=== PATIENT | female | born 2000 | race African-American/Black ===

== ENCOUNTER 2019-03-06 14:33 | Inpatient (IN) | payer OTHER ==
[~2019-03-06] VITALS: Ht 177.8 cm; Wt 61.3 kg
[2019-03-06 14:58] LABS: HEMOGLOBIN 13.2 g/dl (12.0-15.5); MEAN CORPUSCULAR HEMOGLOBIN 31.4 pg (27.0-33.0); PLATELET COUNT, AUTOMATED 235 10^3/uL (150-450); RED BLOOD COUNT 4.21 10^6/uL (4.00-5.40); WHITE BLOOD COUNT 7.6 10^3/uL (4.0-10.0)
[2019-03-06 15:20] LABS: AMPHETAMINES LEVEL URINE NEGATIVE (NEGATIVE); BARBITURATES URINE NEGATIVE (NEGATIVE); BENZODIAZEPINES URINE NEGATIVE (NEGATIVE); CANNABINOIDS URINE NEGATIVE (NEGATIVE); COCAINE METABOLITE URINE NEGATIVE (NEGATIVE); METHADONE URINE NEGATIVE (NEGATIVE); OPIATES URINE NEGATIVE (NEGATIVE); PHENCYCLIDINE URINE NEGATIVE (NEGATIVE)
[2019-03-06 15:39] LABS: ACETAMINOPHEN LEVEL < 2.0 UG/ML (10.0-30.0); ALT/SGPT 9 U/L (12-78); BILIRUBIN,DIRECT 0.4 MG/DL (0.0-0.2); BLOOD UREA NITROGEN 7 MG/DL (7-18); CALCIUM LEVEL 8.5 MG/DL (8.5-10.1); CARBON DIOXIDE LEVEL 28 MEQ/L (21-32); CHLORIDE LEVEL 107 MEQ/L (98-107); CREATININE FOR GFR 0.74 MG/DL (0.55-1.30); ETHYL ALCOHOL (ETHANOL) < 0.003 % (0.000-0.010); GLOMERULAR FILTRATION RATE > 60.0 (>60); GLUCOSE, FASTING 82 MG/DL (70-100); POTASSIUM SERUM 3.7 MEQ/L (3.5-5.1); SALICYLATE LEVEL < 1.7 MG/DL (5.0-30.0); SODIUM LEVEL 141 MEQ/L (136-145); TOTAL PROTEIN 7.6 GM/DL (6.4-8.2)
[2019-03-06 15:48] LABS: HCG, SERUM QUALITATIVE NEGATIVE (NEGATIVE)
[2019-03-06] MEDS ORDERED: SLEEPING MED (18:29)
[2019-03-06] MEDS ORDERED: ANTIDEPRESSANT MED (18:29)
[2019-03-06] MEDS ORDERED: ACETAMINOPHEN TAB 650MG DOSE (2X325MG) PO PRN (19:45)
[2019-03-06] MEDS ORDERED: traZODone 50 MG TAB PO PRN (19:45)
[2019-03-06] MEDS ORDERED: MOM 30ML SUSPENSION UDC PO PRN (19:45)
[2019-03-06 23:15] VITALS: BP 128/79
[2019-03-07] MEDS ORDERED: LORazepam 1 MG TAB PO PRN
[2019-03-07 06:52] VITALS: BP 109/63
[2019-03-07] MEDS ORDERED: LEXA1TAB PO (08:28)
[2019-03-07] MEDS ORDERED: TRAZ-186 PO (08:28)
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
[2019-03-07] MEDS ORDERED: VENLAFAXINE **XR** 37.5 MG CAPSULE PO ONE (13:00)
--- NOTE | 2019-03-07 14:20 | HPEPDOC ---
General Date of Admission March 06, 2019 at 19:39 Chief Complaint The patient is a 19-year-old female admitted with a reason for visit of Unspecif ed Depressive D/O. History of Present Illness Patient is a 19-year-old female, past medical history significant for depression, prior suicide attempt at age 14, admitted on account of suicidal ideation for 2 months. Patient states she went to the behavioral health unit and was referred to the emergency room. She reports usually thinking of killing herself at night for the past 2 months. There is documentation of patient making statements to the effect that she "wouldn't mind being hit by a car while walking across the road. " Initially was placed on antidepressant and sleeping medications which were not effective. At time of evaluation, reports feeling empty inside and being unable to sleep. On assessment, patient also reports yellow vaginal discharge, with odor. . Home Medications Scheduled Escitalopram Oxalate (Lexapro) 10 Mg Tablet, 10 MG PO DAILY for . , (Reported) Trazodone HCl (Trazodone HCl) 50 Mg Tablet, 50 MG PO QHS for SLEEP, (Reported) Allergies Coded Allergies: No Known Allergies (Unverified , 03/06/19) Past Medical History Medical History Depression Insomnia Surgical History Denies A-FIB/CHADSVASC A-FIB History Current/History of A-Fib/PAF?: No Current Oral Anticoagulant The: No Review of Systems Other systems The pertinent 10 point review of systems was completed, negative except as stated in the history of presenting illness Physical Examination Other physical findings GENERAL: NAD SKIN : Warm, dry intact HEENT: Atraumatic, normocephalic, PERRL, moist mucous membrane CV: Regular rate and rhythm, S1S2, no JVD, no edema, distal pulses + and palpabl e RESP: CTAB, no accessory muscle use noted ABDOMEN: BS+, non distended non tender MS: no joint deformities NEURO: Alert and oriented x 3, CN2-12 grossly intact PSYCH: no anxiety or agitation, appropriate mood and affect. Vital Signs Vital Signs Date Time Temp Pulse Resp B/P (MAP) Pulse Ox O2 Delivery O2 Flow Rate FiO2 03/07/19 06:52 98.0 84 12 109/63 (78) 03/06/19 23:15 99 03/06/19 22:00 Room Air Laboratory Data Labs 24H Laboratory Tests 2 5/6/19 14:48: Nucleated Red Blood Cells % (auto) 0.0, Anion Gap 6L, Glomerular Filtration Rate > 60.0, Calcium Level 8.5, Aspartate Amino Transf (AST/SGOT) 16, Alanine Aminotransferase (ALT/SGPT) 9L, Alkaline Phosphatase 55, Total Bilirubin 2.0H, Direct Bilirubin 0.4H, Total Protein 7.6, Albumin 4.0, Albumin/Globulin Ratio 1. 11, Thyroid Stimulating Hormone (TSH) 1.020, Human Chorionic Gonadotropin, Qual NEGATIVE, Salicylates Level < 1.7L, Urine Amphetamines Screen NEGATIVE, Urine Benzodiazepines Screen NEGATIVE, Urine Opiates Screen NEGATIVE, Urine Methadone Screen NEGATIVE, Acetaminophen Level < 2.0L, Urine Barbiturates Screen NEGATIVE, Urine Phencyclidine Screen NEGATIVE, Urine Cocaine Metabolite Screen NEGATIVE, Urine Cannabinoids Screen NEGATIVE, Ethyl Alcohol Level < 0.003 CBC/BMP Laboratory Tests 03/06/19 14:48 Red Blood Count 4.21, Mean Corpuscular Volume 95.0, Mean Corpuscular Hemoglobin 31.4, Mean Corpuscular Hemoglobin Concent 33.0, Red Cell Distribution Width 11.7 Assessment/Plan Bacterial Vaginosis -Start on metronidazole -Monitor patients response to therapy Depression -management by primary team Suicide Ideation -management by primary team Plan / VTE VTE Prophylaxis Ordered?: No VTE Exclusion Mechanical Proph: Low Risk for VTE ROSE ANTONIO March 07, 2019 14:20
[2019-03-07] MEDS: metroNIDAZOLE (FLAGYL) 500 MG TAB PO SCH ×2 (14:47→21:13)
[2019-03-07] MEDS: MAALOX 30 ML SUSP *UDC PO PRN (17:44)
[2019-03-07 18:00] VITALS: BP 116/64
[2019-03-07] MEDS: QUEtiapine FUMARATE 50 MG TAB PO SCH (21:13)
[2019-03-08] MEDS: metroNIDAZOLE (FLAGYL) 500 MG TAB PO SCH ×3 (06:09→21:24)
[2019-03-08 06:58] VITALS: BP 134/61
[2019-03-08] MEDS: VENLAFAXINE **XR** 37.5 MG CAPSULE PO SCH (09:45)
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
[2019-03-08 18:36] VITALS: BP 119/76
[2019-03-08] MEDS: MAALOX 30 ML SUSP *UDC PO PRN (19:59)
[2019-03-08] MEDS: QUEtiapine FUMARATE 50 MG TAB PO SCH (21:24)
[2019-03-09] MEDS: metroNIDAZOLE (FLAGYL) 500 MG TAB PO SCH ×3 (06:13→21:08)
[2019-03-09 06:35] VITALS: BP 98/51
[2019-03-09] MEDS: VENLAFAXINE **XR** 37.5 MG CAPSULE PO SCH (08:32)
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
[2019-03-09] MEDS: MAALOX 30 ML SUSP *UDC PO PRN (12:36)
[2019-03-09] MEDS ORDERED: FLUCONAZOLE 50MG TABLET PO ONE (16:00)
[2019-03-09 18:00] VITALS: BP 120/84
[2019-03-09] MEDS: QUEtiapine FUMARATE 50 MG TAB PO SCH (21:08)
[2019-03-09] MEDS: traZODone 100 MG TAB PO PRN (21:09)
[2019-03-10] MEDS: metroNIDAZOLE (FLAGYL) 500 MG TAB PO SCH ×3 (05:44→21:23)
[2019-03-10 06:44] VITALS: BP 90/50
[2019-03-10] MEDS: VENLAFAXINE **XR** 37.5 MG CAPSULE PO SCH (08:48)
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
[2019-03-10 18:00] VITALS: BP 112/60
[2019-03-10] MEDS: FAMOTIDINE 20 MG TAB PO SCH (21:23)
[2019-03-10] MEDS: traZODone 100 MG TAB PO PRN (21:23)
[2019-03-10] MEDS: QUEtiapine FUMARATE 50 MG TAB PO SCH (21:23)
[2019-03-11] MEDS: metroNIDAZOLE (FLAGYL) 500 MG TAB PO SCH ×3 (06:12→21:53)
[2019-03-11 06:33] VITALS: BP 95/52
[2019-03-11] MEDS: VENLAFAXINE **XR** 37.5 MG CAPSULE PO SCH (08:47)
[2019-03-11 18:05] VITALS: BP 113/60
[2019-03-11] MEDS: MAALOX 30 ML SUSP *UDC PO PRN (18:11)
[2019-03-11] MEDS: traZODone 100 MG TAB PO PRN (21:53)
[2019-03-11] MEDS: QUEtiapine FUMARATE 50 MG TAB PO SCH (21:53)
[2019-03-11] MEDS: FAMOTIDINE 20 MG TAB PO SCH (21:53)
[2019-03-12] MEDS: metroNIDAZOLE (FLAGYL) 500 MG TAB PO SCH ×3 (06:26→20:30)
[2019-03-12 06:47] VITALS: BP 95/55
[2019-03-12] MEDS: VENLAFAXINE **XR** 37.5 MG CAPSULE PO SCH (10:04)
[2019-03-12 17:22] VITALS: BP 99/57
[2019-03-12] MEDS: MAALOX 30 ML SUSP *UDC PO PRN (18:11)
[2019-03-12] MEDS: FAMOTIDINE 20 MG TAB PO SCH (20:30)
[2019-03-12] MEDS: QUEtiapine FUMARATE 50 MG TAB PO SCH (20:30)
[2019-03-12] MEDS: traZODone 100 MG TAB PO PRN (20:31)
[2019-03-13] MEDS: metroNIDAZOLE (FLAGYL) 500 MG TAB PO SCH (06:42)
[2019-03-13 06:45] VITALS: BP 90/53
[2019-03-13] MEDS ORDERED: VENL37.598 PO (08:41)
[2019-03-13] MEDS ORDERED: QUET5TAB PO (08:41)
[2019-03-13] MEDS ORDERED: TRAZ10TA PO (08:41)
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
[2019-03-13] MEDS: VENLAFAXINE **XR** 37.5 MG CAPSULE PO SCH (09:04)
[2019-03-13] MEDS ORDERED: SERO1TAB PO ×2 (10:13→10:15)
[2019-03-13] MEDS ORDERED: EFFE75CA2 PO (10:14)
[2019-03-13] MEDS: MAALOX 30 ML SUSP *UDC PO PRN (10:19)
== END 2019-03-13 12:00 | disposition home or self-care (01) | DRG 881 ==
LOC: M ED 14:33 → M ED INP 19:39 → M PSY 22:20
PROVIDERS: ADMIT Psychiatry & Neurology Psychiatry; ATTEND Psychiatry & Neurology Psychiatry
DX: F32.9 Major depressive disorder, single episode, unspecified (principal); F31.9 Bipolar disorder, unspecified; Z79.899 Other long term (current) drug therapy

== ENCOUNTER 2019-04-12 14:48 | Inpatient (IN) | payer OTHER ==
[~2019-04-12] VITALS: Ht 177.8 cm; Wt 61.1 kg
[~2019-04-12 14:48] MED LIST: ANTIDEPRESSANT MED; EFFE75CA2 PO; LEXA1TAB PO; QUET5TAB PO; SERO1TAB PO; SLEEPING MED; TRAZ-186 PO; TRAZ10TA PO; VENL37.598 PO
[2019-04-12 15:34] LABS: HEMATOCRIT 38.7 % (36.0-47.0); HEMOGLOBIN 12.9 g/dl (12.0-15.5); MEAN CORPUSCULAR HEMOGLOBIN 32.3 pg (27.0-33.0); MEAN CORPUSCULAR HGB CONC 33.3 g/dl (32.0-36.5); MEAN CORPUSCULAR VOLUME 96.8 fl (80.0-96.0); PLATELET COUNT, AUTOMATED 230 10^3/uL (150-450); WHITE BLOOD COUNT 7.8 10^3/uL (4.0-10.0)
[2019-04-12 15:51] LABS: AMPHETAMINES LEVEL URINE NEGATIVE (NEGATIVE); BARBITURATES URINE NEGATIVE (NEGATIVE); BENZODIAZEPINES URINE NEGATIVE (NEGATIVE); CANNABINOIDS URINE NEGATIVE (NEGATIVE); COCAINE METABOLITE URINE NEGATIVE (NEGATIVE); HCG, SERUM QUALITATIVE NEGATIVE (NEGATIVE); METHADONE URINE NEGATIVE (NEGATIVE); OPIATES URINE NEGATIVE (NEGATIVE); PHENCYCLIDINE URINE NEGATIVE (NEGATIVE)
[2019-04-12 16:04] LABS: ACETAMINOPHEN LEVEL < 2.0 UG/ML (10.0-30.0); ALBUMIN 3.7 GM/DL (3.2-5.2); ALT/SGPT 23 U/L (12-78); BILIRUBIN,DIRECT 0.2 MG/DL (0.0-0.2); BLOOD UREA NITROGEN 9 MG/DL (7-18); CALCIUM LEVEL 8.5 MG/DL (8.5-10.1); CARBON DIOXIDE LEVEL 28 MEQ/L (21-32); CHLORIDE LEVEL 107 MEQ/L (98-107); CREATININE FOR GFR 0.85 MG/DL (0.55-1.30); GLOMERULAR FILTRATION RATE > 60.0 (>60); GLUCOSE, FASTING 88 MG/DL (70-100); POTASSIUM SERUM 4.2 MEQ/L (3.5-5.1); SALICYLATE LEVEL < 1.7 MG/DL (5.0-30.0); SODIUM LEVEL 140 MEQ/L (136-145); TOTAL PROTEIN 7.1 GM/DL (6.4-8.2)
[2019-04-12 16:05] LABS: ETHYL ALCOHOL (ETHANOL) < 0.003 % (0.000-0.010)
[2019-04-12] MEDS ORDERED: TRAZ-189 PO (16:47)
[2019-04-12] MEDS ORDERED: IBUP-1092 PO (16:47)
[2019-04-12] MEDS ORDERED: SERO1TAB PO (16:47)
[2019-04-12] MEDS ORDERED: VENL75CA2 PO (16:47)
[2019-04-12] MEDS ORDERED: MOM 30ML SUSPENSION UDC PO PRN (17:00)
[2019-04-12 17:39] VITALS: BP 136/92
[2019-04-12] MEDS: ACETAMINOPHEN TAB 650MG DOSE (2X325MG) PO PRN (17:57)
[2019-04-12] MEDS: MAALOX 30 ML SUSP *UDC PO PRN (18:38)
[2019-04-12] MEDS: QUEtiapine FUMARATE 100 MG TAB PO SCH (20:21)
[2019-04-12] MEDS: traZODone 100 MG TAB PO PRN (20:21)
[2019-04-13 07:02] VITALS: BP 124/68
[2019-04-13] MEDS ORDERED: VENLAFAXINE **XR** 75MG CAPSULE PO SCH (09:00)
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
[2019-04-13] MEDS ORDERED: VENLAFAXINE 37.5 MG TAB PO ONE (11:30)
[2019-04-13 12:30] VITALS: BP 113/70
[2019-04-13] MEDS: MAALOX 30 ML SUSP *UDC PO PRN (13:00)
--- NOTE | 2019-04-13 13:59 | HPEPDOC ---
General Date of Admission Apr 12, 2019 at 16:56 Date of Service: Apr 13, 2019 Attending Physician: FANI DELCID MD Chief Complaint The patient is a 19-year-old female admitted with a reason for visit of Unspecified Depressive Disorder. 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 Patient also verbalized homicidal ideation. Trigger for current presentation been work related stress. Patient has a past medical history significant for prior suicide attempt at age 14. On assessment, she denies any chest pain, shortness of breath, weakness, headache, abdominal pain, chills, nausea, diarrhea or constipation. Home Medications Scheduled Quetiapine Fumarate (Seroquel) 100 Mg Tablet, 100 MG PO QHS, (Reported) Trazodone HCl (Trazodone HCl) 100 Mg Tablet, 100 MG PO QHS, (Reported) Venlafaxine HCl (Venlafaxine HCl ER) 75 Mg Cap.er.24h, 75 MG PO DAILY, (Reported) Scheduled PRN Ibuprofen (Ibuprofen) 200 Mg Tablet, 400 MG PO QID PRN for PAIN, (Reported) Allergies Coded Allergies: No Known Allergies (Unverified , 04/12/19) Past Medical History Medical History Depression Insomnia Surgical History Denies Social History * Smoker: Denies Alcohol: Denies Drugs: denies A-FIB/CHADSVASC A-FIB History Current/History of A-Fib/PAF?: No Current PO Anticoag Therapy: No Review of Systems Other systems A pertinent 10 point review of systems was completed, negative except as stated in the history of presenting illness Physical Examination Other physical findings GENERAL: NAD SKIN : Warm, dry intact HEENT: Atraumatic, normocephalic, PERRL, moist mucous membrane CV: Regular rate and rhythm, S1S2, no JVD, no edema, distal pulses + and palpable RESP: CTAB, no accessory muscle use noted ABDOMEN: BS+, non distended non tender MS: no joint deformities NEURO: Alert and oriented x 3, CN2-12 grossly intact PSYCH: no anxiety or agitation, flat affect Vital Signs Vital Signs Date Time Temp Pulse Resp B/P (MAP) Pulse Ox O2 Delivery O2 Flow Rate FiO2 04/13/19 12:30 98.6 98 16 113/70 (84) 04/12/19 17:39 100 04/12/19 15:34 Room Air Laboratory Data Labs 24H Laboratory Tests 2 04/12/19 15:24: Nucleated Red Blood Cells % (auto) 0.0, Anion Gap 5L, Glomerular Filtration Rate > 60.0, Calcium Level 8.5, Aspartate Amino Transf (AST/SGOT) 35, Alanine Aminotransferase (ALT/SGPT) 23, Alkaline Phosphatase 49, Total Bilirubin 1.0, Direct Bilirubin 0.2, Total Protein 7.1, Albumin 3.7, Albumin/Globulin Ratio 1.09, Thyroid Stimulating Hormone (TSH) 2.300, Human Chorionic Gonadotropin, Qual NEGATIVE, Salicylates Level < 1.7L, Urine Amphetamines Screen NEGATIVE, Urine Benzodiazepines Screen NEGATIVE, Urine Opiates Screen NEGATIVE, Urine Methadone Screen NEGATIVE, Acetaminophen Level < 2.0L, Urine Barbiturates Screen NEGATIVE, Urine Phencyclidine Screen NEGATIVE, Urine Cocaine Metabolite Screen NEGATIVE, Urine Cannabinoids Screen NEGATIVE, Ethyl Alcohol Level < 0.003 CBC/BMP Laboratory Tests 04/12/19 15:24 Red Blood Count 4.00, Mean Corpuscular Volume 96.8 H, Mean Corpuscular Hemoglobin 32.3, Mean Corpuscular Hemoglobin Concent 33.3, Red Cell Distribution Width 11.4 L Assessment/Plan Suicide Ideation/homicidal ideation -management by primary team Depression -management by primary team At this time patient has no medical comorbidities requiring active follow-up. Reconsult medical team as needed Plan / VTE VTE Prophylaxis Ordered?: No VTE Exclusion Mechanical Proph: Low Risk for VTE ROSE ANTONIO Apr 13, 2019 13:59
[2019-04-13 18:00] VITALS: BP 109/64
[2019-04-13] MEDS: QUEtiapine FUMARATE 100 MG TAB PO SCH (20:48)
[2019-04-13] MEDS: traZODone 100 MG TAB PO PRN (20:48)
[2019-04-14 07:00] VITALS: BP 115/59
[2019-04-14] MEDS: VENLAFAXINE 37.5 MG TAB PO SCH (08:37)
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
[2019-04-14] MEDS ORDERED: PILL CUTTER 1 EACH XX PRN (10:00)
[2019-04-14 18:42] VITALS: BP 105/64
[2019-04-14] MEDS: traZODone 100 MG TAB PO PRN (21:33)
[2019-04-14] MEDS: QUEtiapine FUMARATE 25 MG TAB PO SCH (21:33)
[2019-04-14] MEDS: QUEtiapine FUMARATE 100 MG TAB PO SCH (21:33)
[2019-04-15 06:55] VITALS: BP 107/63
[2019-04-15] MEDS: VENLAFAXINE 37.5 MG TAB PO SCH (08:33)
--- NOTE | 2019-04-15 15:02 | MHIPNPDOC ---
[facility] Progress Note Progress Note DATE OF SERVICE: 04/15/19 HISTORY: 19-year-old with severe depression and possible history of bipolar disorder VITAL SIGNS: See below. NEW TEST RESULTS: . CURRENT MEDICATIONS: See below. MENTAL STATUS EXAMINATION: Patient is a 19-year old female, who is, complaining of severe depression, but describes history of highs and lows with a family history of mother and sibling having bipolar disorder. Speech: Is. No gross abnormality. Language skills are intact. Thought processes including: Presently denying any gross abnormalities including hallucinations, delusions, obsessions, compulsions or phobias. Thought content:. As above. Abstract reasoning, and computation:, Able to abstract. Description of associations:. No loose associations. Description of abnormal or psychotic thoughts: Continues to be severely depressed. Judgment:. Fair. Insight:, Fair. Orientation: Intact 3. Recent and remote memory:. Intact. Attention span and concentration: Intact but patient states she was treated for ADD as child. Language: Intact. Fund of knowledge:. Full. Mood: Sad. Affect:, Congruent. DIAGNOSES: 1.. Bipolar, depressed. ASSESSMENT: Further evaluation and needed to determine if patient is bipolar and if so medication changes being to be made or added MANAGEMENT PLAN: As above. TIME SPENT:, 35 minutes. Vital Signs Vital Signs Date Time Temp Pulse Resp B/P (MAP) Pulse Ox O2 Delivery O2 Flow Rate FiO2 04/15/19 06:55 97.6 100 14 107/63 (78) 04/12/19 17:39 100 04/12/19 15:34 Room Air Current Medications Current Medications Acetaminophen (Tylenol Tab) 650 mg Q6HP PRN PO HEADACHE or DISCOMFORT Last administered on 04/12/19at 17:57; Start 04/12/19 at 17:00 Al Hydrox/Mg Hydrox/Simethicone (Mylanta) 30 ml Q4HP PRN PO HEARTBUR N/INDIGESTION Last administered on 04/13/19at 13:00; Start 04/12/19 at 17:00 Aripiprazole (AbiLIFY) 2.5 mg DAILY PO Last administered on 04/15/19at 08:33; Start 04/15/19 at 09:00 Home Med (Med Rec Complete!) ASDIRECTED XX ; Start 04/12/19 at 17:00; Stop at 17:00; Status DC Magnesium Hydroxide (Milk Of Magnesia) 30 ml DAILYPRN PRN PO CONSTIPATION; Start 04/12/19 at 17:00 Quetiapine Fumarate (SEROquel) 25 mg QHS PO Last administered on 04/14/19at 21:33; Start 04/14/19 at 21:00 Quetiapine Fumarate (SEROquel) 100 mg QHS PO Last administered on 04/14/19at 21:33; Start 04/12/19 at 21:00 Trazodone HCl (Desyrel) 100 mg QHSP PRN PO INSOMNIA Last administered on 04/14/19at 21:33; Start 04/12/19 at 17:00 Venlafaxine HCl (Effexor Xr) 75 mg DAILY PO Last administered on 04/13/19at 09:13; Start 04/13/19 at 09:00; Stop 04/13/19 at 12:08; Status DC Venlafaxine HCl (Effexor) 150 mg DAILY PO Last administered on 04/15/19at 08:33; Start 04/14/19 at 09:00 Allergies Coded Allergies: No Known Allergies (Unverified , 04/12/19) FANTA SAAVEDRA MD Apr 15, 2019 15:02
[2019-04-15] MEDS: MAALOX 30 ML SUSP *UDC PO PRN (17:50)
[2019-04-15 18:00] VITALS: BP 131/80
[2019-04-15] MEDS: QUEtiapine FUMARATE 100 MG TAB PO SCH (21:10)
[2019-04-15] MEDS: QUEtiapine FUMARATE 25 MG TAB PO SCH (21:10)
[2019-04-15] MEDS: traZODone 100 MG TAB PO PRN (21:51)
[2019-04-16 06:38] VITALS: BP 90/58
[2019-04-16] MEDS: VENLAFAXINE 37.5 MG TAB PO SCH (08:59)
--- NOTE | 2019-04-16 10:57 | MHIPNPDOC ---
[facility] Progress Note Progress Note DATE OF SERVICE: 04/16/19 HISTORY: 19-year-old female continues to be depressed and sleeping poorly. VITAL SIGNS: See below. NEW TEST RESULTS: None. CURRENT MEDICATIONS: See below. MENTAL STATUS EXAMINATION: Patient is a 19-year old female, who is, who is admitted for severe depression and sleep difficulties. Speech: Is. Normal. Language skills are. No gross disturbances. Thought processes including:. Denies hallucinations, delusions, obsessions, compulsions, phobias. Thought content:. No gross disturbances. Abstract reasoning, and computation: Able to abstract. Description of associations:. No loose associations. Description of abnormal or psychotic thoughts:. No psychotic thought noted. Judgment: Fair. Insight:, Limited. Orientation: Intact 3. Recent and remote memory:. Essentially intact. Attention span and concentration:. No disturbance. Language:. No gross disturbance. Fund of knowledge:. Full. Mood: Sad Affect:, Congruent. DIAGNOSES: 1., Major depressive illness. ASSESSMENT:. Continue treated for depression with increased doses of venlafaxine and addition of's increased dose of Seroquel due to sleep difficulties MANAGEMENT PLAN: As above. TIME SPENT:, 35 minutes. Vital Signs Vital Signs Date Time Temp Pulse Resp B/P (MAP) Pulse Ox O2 Delivery O2 Flow Rate FiO2 04/16/19 06:38 99.2 72 16 90/58 (69) 04/12/19 17:39 100 04/12/19 15:34 Room Air Current Medications Current Medications Acetaminophen (Tylenol Tab) 650 mg Q6HP PRN PO HEADACHE or DISCOMFORT Last administered on 04/12/19at 17:57; Start 04/12/19 at 17:00 Al Hydrox/Mg Hydrox/Simethicone (Mylanta) 30 ml Q4HP PRN PO H EARTBURN/INDIGESTION Last administered on 04/15/19at 17:50; Start 04/12/19 at 17:00 Aripiprazole (AbiLIFY) 2.5 mg DAILY PO Last administered on 04/16/19at 08:59; Start 04/15/19 at 09:00 Home Med (Med Rec Complete!) ASDIRECTED XX ; Start 04/12/19 at 17:00; Stop 04/12/19 at 17:00; Status DC Magnesium Hydroxide (Milk Of Magnesia) 30 ml DAILYPRN PRN PO CONSTIPATION; Start 04/12/19 at 17:00 Quetiapine Fumarate (SEROquel) 25 mg QHS PO Last administered on 04/15/19at 21:10; Start 04/14/19 at 21:00 Quetiapine Fumarate (SEROquel) 100 mg QHS PO Last administered on 04/15/19at 21:10; Start 04/12/19 at 21:00 Trazodone HCl (Desyrel) 100 mg QHSP PRN PO INSOMNIA Last administered on 04/15/19at 21:51; Start 04/12/19 at 17:00 Venlafaxine HCl (Effexor Xr) 75 mg DAILY PO Last administered on 04/13/19at 09:13; Start 04/13/19 at 09:00; Stop 04/13/19 at 12:08; Status DC Venlafaxine HCl (Effexor) 150 mg DAILY PO Last administered on 04/16/19at 08:59; Start 04/14/19 at 09:00 Allergies Coded Allergies: No Known Allergies (Unverified , 04/12/19) FANTA SAAVEDRA MD Apr 16, 2019 10:56
[2019-04-16] MEDS: ACETAMINOPHEN TAB 650MG DOSE (2X325MG) PO PRN (11:55)
[2019-04-16 18:00] VITALS: BP 102/61
[2019-04-16] MEDS: MAALOX 30 ML SUSP *UDC PO PRN (20:44)
[2019-04-16] MEDS ORDERED: QUEtiapine FUMARATE 50 MG TAB PO SCH (21:00)
[2019-04-16] MEDS: QUEtiapine FUMARATE 100 MG TAB PO SCH (22:03)
[2019-04-16] MEDS: traZODone 100 MG TAB PO PRN (22:03)
[2019-04-17 06:15] VITALS: BP 137/73
[2019-04-17] MEDS: VENLAFAXINE 37.5 MG TAB PO SCH (08:47)
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
[2019-04-17] MEDS: hydrOXYzine 50 MG TAB PO PRN (13:04)
[2019-04-17 18:11] VITALS: BP 121/92
[2019-04-17] MEDS: ACETAMINOPHEN TAB 650MG DOSE (2X325MG) PO PRN (20:32)
[2019-04-17] MEDS ORDERED: QUEtiapine FUMARATE 50 MG TAB PO SCH (21:00)
[2019-04-17] MEDS ORDERED: QUEtiapine FUMARATE 25 MG TAB PO SCH (21:00)
[2019-04-17] MEDS: traZODone 100 MG TAB PO PRN (21:10)
[2019-04-18 06:40] VITALS: BP 122/72
[2019-04-18] MEDS: hydrOXYzine 50 MG TAB PO PRN ×2 (06:40→12:51)
[2019-04-18] MEDS: VENLAFAXINE 37.5 MG TAB PO SCH (08:43)
[2019-04-18] MEDS ORDERED: TRAZ10TA PO (08:49)
[2019-04-18] MEDS ORDERED: QUET1TAB7 PO (08:49)
[2019-04-18] MEDS ORDERED: QUET5TAB PO (08:49)
[2019-04-18] MEDS ORDERED: ABIL1TAB11 PO (08:49)
[2019-04-18] MEDS ORDERED: EFFE150C2 PO (08:49)
[2019-04-18] MEDS ORDERED: HYDRO50TAB PO (08:49)
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
== END 2019-04-18 14:04 | disposition home or self-care (01) | DRG 885 ==
LOC: M ED 14:48 → M ED INP 16:56 → M PSY 17:31
PROVIDERS: ADMIT Psychiatry & Neurology Psychiatry; ATTEND Psychiatry & Neurology Psychiatry
DX: F39 Unspecified mood [affective] disorder (principal); R45.851 Suicidal ideations; F32.9 Major depressive disorder, single episode, unspecified; G47.00 Insomnia, unspecified; R45.850 Homicidal ideations; Z79.899 Other long term (current) drug therapy

== ENCOUNTER 2019-05-23 17:24 | Inpatient (IN) | payer OTHER ==
[~2019-05-23] VITALS: Ht 177.8 cm; Wt 54.5 kg
[~2019-05-23 17:24] MED LIST changes: +ABIL1TAB11 PO; +EFFE150C2 PO; +HYDRO50TAB PO; +IBUP-1092 PO; +QUET1TAB7 PO; +TRAZ-189 PO; +VENL75CA2 PO
[2019-05-23 18:13] LABS: HEMATOCRIT 39.2 % (36.0-47.0); HEMOGLOBIN 12.9 g/dl (12.0-15.5); MEAN CORPUSCULAR HEMOGLOBIN 31.6 pg (27.0-33.0); MEAN CORPUSCULAR HGB CONC 32.9 g/dl (32.0-36.5); MEAN CORPUSCULAR VOLUME 96.1 fl (80.0-96.0); PLATELET COUNT, AUTOMATED 264 10^3/uL (150-450); RED BLOOD COUNT 4.08 10^6/uL (4.00-5.40); WHITE BLOOD COUNT 5.7 10^3/uL (4.0-10.0)
[2019-05-23 18:50] LABS: AMPHETAMINES LEVEL URINE NEGATIVE (NEGATIVE); BARBITURATES URINE NEGATIVE (NEGATIVE); BENZODIAZEPINES URINE NEGATIVE (NEGATIVE); CANNABINOIDS URINE NEGATIVE (NEGATIVE); COCAINE METABOLITE URINE NEGATIVE (NEGATIVE); METHADONE URINE NEGATIVE (NEGATIVE); OPIATES URINE NEGATIVE (NEGATIVE); PHENCYCLIDINE URINE NEGATIVE (NEGATIVE)
[2019-05-23 18:53] LABS: HCG, SERUM QUALITATIVE NEGATIVE (NEGATIVE)
[2019-05-23 18:57] LABS: ACETAMINOPHEN LEVEL < 2.0 UG/ML (10.0-30.0); ALBUMIN 3.9 GM/DL (3.2-5.2); ALT/SGPT 17 U/L (12-78); BILIRUBIN,DIRECT 0.2 MG/DL (0.0-0.2); BILIRUBIN,TOTAL 0.7 MG/DL (0.2-1.0); BLOOD UREA NITROGEN 13 MG/DL (7-18); CALCIUM LEVEL 8.8 MG/DL (8.5-10.1); CARBON DIOXIDE LEVEL 31 MEQ/L (21-32); CHLORIDE LEVEL 105 MEQ/L (98-107); CREATININE FOR GFR 0.81 MG/DL (0.55-1.30); ETHYL ALCOHOL (ETHANOL) 0.005 % (0.000-0.010); GLOMERULAR FILTRATION RATE > 60.0 (>60); GLUCOSE, FASTING 94 MG/DL (70-100); POTASSIUM SERUM 4.3 MEQ/L (3.5-5.1); SALICYLATE LEVEL < 1.7 MG/DL (5.0-30.0); SODIUM LEVEL 139 MEQ/L (136-145); TOTAL PROTEIN 7.3 GM/DL (6.4-8.2)
[2019-05-23] MEDS ORDERED: ACETAMINOPHEN TAB 650MG DOSE (2X325MG) PO PRN (20:45)
[2019-05-23] MEDS ORDERED: traZODone 50 MG TAB PO PRN (20:45)
[2019-05-23] MEDS ORDERED: MOM 30ML SUSPENSION UDC PO PRN (20:45)
[2019-05-23] MEDS ORDERED: MAALOX 30 ML SUSP *UDC PO PRN (20:45)
[2019-05-23] MEDS ORDERED: NICOTINE 21MG/24HR 1 EA TRANSDERMAL TD PRN (21:00)
[2019-05-23] MEDS ORDERED: QUEtiapine FUMARATE 200 MG TAB PO SCH (21:00)
[2019-05-23] MEDS ORDERED: TRAZ150T90 PO (21:18)
[2019-05-23] MEDS ORDERED: SERO400T PO (21:18)
[2019-05-23] MEDS ORDERED: SERO50TA4 PO (21:18)
[2019-05-23] MEDS ORDERED: HYDR50TA70 PO (21:18)
[2019-05-23] MEDS ORDERED: ABIL1TAB11 PO (21:18)
[2019-05-23] MEDS ORDERED: IBUP1TAB7 PO (21:18)
[2019-05-23] MEDS ORDERED: TIZA4TAB4 PO (21:22)
[2019-05-23] MEDS ORDERED: ARTI99.0 OU (21:22)
[2019-05-23] MEDS ORDERED: PRED1SUS2 OU (21:22)
[2019-05-23] MEDS ORDERED: VENL150C43 PO (21:22)
[2019-05-23] MEDS ORDERED: SODI3.5O3 OU (21:22)
[2019-05-23] MEDS ORDERED: OMEP20CA4 PO (21:22)
[2019-05-23] MEDS ORDERED: OLOP0.1D OU (21:22)
[2019-05-23] MEDS ORDERED: traZODone 100 MG TAB PO PRN (22:30)
[2019-05-23] MEDS ORDERED: IBUPROFEN 800 MG TAB PO PRN (22:30)
[2019-05-24 00:14] VITALS: BP 120/76
[2019-05-24] MEDS: QUEtiapine FUMARATE 200 MG TAB PO SCH ×2 (00:19→20:54)
[2019-05-24] MEDS: LORazepam 1 MG TAB PO PRN ×2 (00:19→08:59)
[2019-05-24 06:38] VITALS: BP 99/58
--- NOTE | 2019-05-24 08:03 | HPEPDOC ---
[facility] Medical History & Physical Date of Admission May 24, 2019 Date of Service: May 24, 2019 History and Physical CHIEF COMPLAINT: tereso HISTORY OF PRESENT ILLNESS: Patient is a 19-year-old female with history of bipolar disorder who was sent in from psychiatrist office due to concern for tereso. Patient was in her usual state of health until day prior to admission. Patient states will driving to her psychiatrist appointment she "drove a little fast" going [address] While meeting with her psychiatrist patient told her psychiatrist that she was driving fast and a discussion ensued which led to a disagreement and patient being sent by psychiatrist to the hospital due to concern for tereso. Patient denies racing thoughts, other manic actions, suicidal ideation or homicidal ideation. Patient denies feeling manic at this time and says this is all a misunderstanding. Patient denies other symptoms of fever, chills, chest pain, difficulty breathing, nausea, vomiting, diarrhea, leg pain or swelling. PAST MEDICAL HISTORY: 1. bipolar disorder PAST SURGICAL HISTORY: denies SOCIAL HISTORY: Lives with grandmother. Denies smoking. Denies alcohol. Denies illicits FAMILY HISTORY: Mother and sister with bipolar disorder ALLERGIES: Please see below. REVIEW OF SYSTEMS: 10 point review of systems reviewed and pertinent positives and negatives documented as per HPI. All other reviewed ROS negative HOME MEDICATIONS: Please see below. PHYSICAL EXAMINATION: VITAL SIGNS: Please see below GENERAL APPEARANCE: Young female laying in bed with covers over her head somewhat pressured speech on interview, NAD HEENT: PERRL, EOMI, anicteric sclera, OP clear CARDIOVASCULAR: RRR, nl s1/2 no mrg appreciated LUNGS: Clear to auscultation bilaterally ABDOMEN: Soft, nontender, nondistended. MUSCULOSKELETAL:. No gross deformities. EXTREMITIES:. No edema. Intact distal pulses. NEUROLOGICAL:. No focal deficits. PSYCHIATRIC:. Pressured speech. Poor insight. LABORATORY DATA: See below. IMAGING: None MICROBIOLOGY: Please see below. ASSESSMENT: Patient is a 19-year-old female with history of bipolar disorder who was sent in from psychiatrist office due to concern for tereso. PLAN: 1. Bipolar with possible manic episode -treatment plan as per primary psychiatric team Disposition: as per primary psychiatric team Pt has no active medical comorbidities so medicine will sign-off. Please reconsult with new questions. Vital Signs Vital Signs Date Time Temp Pulse Resp B/P (MAP) Pulse Ox O2 Delivery O2 Flow Rate FiO2 05/24/19 06:38 98.0 71 12 99/58 (72) 05/24/19 00:14 98 05/23/19 23:11 Room Air Laboratory Data Labs 24H Laboratory Tests 2 05/23/19 17:54: Urine Amphetamines Screen NEGATIVE, Urine Benzodiazepines Screen NEGATIVE, Urine Opiates Screen NEGATIVE, Urine Methadone Screen NEGATIVE, Urine Barbiturates Screen NEGATIVE, Urine Phencyclidine Screen NEGATIVE, Urine Cocaine Metabolite Screen NEGATIVE, Urine Cannabinoids Screen NEGATIVE 05/23/19 17:56: Nucleated Red Blood Cells % (auto) 0.0, Anion Gap 3L, Glomerular Filtration Rate > 60.0, Calcium Level 8.8, Aspartate Amino Transf (AST/SGOT) 14, Alanine Aminotransferase (ALT/SGPT) 17, Alkaline Phosphatase 53, Total Bilirubin 0.7, Direct Bilirubin 0.2, Total Protein 7.3, Albumin 3.9, Albumin/Globulin Ratio 1.15, Thyroid Stimulating Hormone (TSH) 3.020, Human Chorionic Gonadotropin, Qual NEGATIVE, Salicylates Level < 1.7L, Acetaminophen Level < 2.0L, Ethyl Alcohol Level 0.005 CBC/BMP Laboratory Tests 05/23/19 17:56 Red Blood Count 4.08, Mean Corpuscular Volume 96.1 H, Mean Corpuscular Hemoglobin 31.6, Mean Corpuscular Hemoglobin Concent 32.9, Red Cell Distribution Width 11.5 Home Medications Scheduled Aripiprazole (Abilify) 5 Mg Tablet, 5 MG PO DAILY Hydroxyzine HCl (Hydroxyzine HCl) 50 Mg Tablet, 50 MG PO BID Olopatadine HCl (Olopatadine HCl) 0.1% 5ML Drops, 1 DROP OU BID Omeprazole (Omeprazole) 20 Mg Capsule.dr, 20 MG PO DAILY Polyvinyl Alcohol (Artificial Tears) 15 Ml Drops, 1 DROP OU QID Prednisolone Acetate (Pred Forte 1% Opth Susp) 5 Ml Drops.susp, 1 DROP OU QID Quetiapine Fumarate (Seroquel Xr) 50 Mg Tab.er.24h, 100 MG PO QPM DINNERTIME Quetiapine Fumarate (Seroquel) 400 Mg Tablet, 400 MG PO QHS Sodium Chloride (Sodium Chloride 5% Opth Oint) 3.5 Gm Oint...g., 1 DOSE OU QHS Venlafaxine HCl (Venlafaxine HCl ER) 150 Mg Cap.er.24h, 150 MG PO DAILY Scheduled PRN Ibuprofen (Ibuprofen) 800 Mg Tablet, 800 MG PO BID PRN for PAIN Tizanidine HCl (Tizanidine HCl) 4 Mg Tablet, 4 MG PO QHS PRN for MUSCLE SPASMS Trazodone HCl (Trazodone HCl) 150 Mg Tablet, 150 MG PO QHS PRN for INSOMNIA Allergies Coded Allergies: No Known Allergies (Unverified , 04/12/19) A-FIB/CHADSVASC A-FIB History Current/History of A-Fib/PAF?: No ADAM CLARK MD May 24, 2019 08:03
[2019-05-24] MEDS: POLYVINYL ALCOHOL OPHTH SOLN 15 ML(LIQUITEARS) OU SCH ×4 (08:59→21:00)
[2019-05-24] MEDS: prednisoLONE ACET 1% OPHTH SUSP 5ML OU SCH ×4 (08:59→21:00)
[2019-05-24] MEDS: OMEPRAZOLE 20 MG CAP PO SCH (08:59)
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
[2019-05-24] MEDS ORDERED: traZODone 100 MG TAB PO PRN (10:30)
[2019-05-24] MEDS ORDERED: PILL CUTTER 1 EACH XX PRN (10:45)
[2019-05-24 12:00] VITALS: BP 114/72
[2019-05-24] MEDS: OLANZapine ORAL DISINTEGRATING TAB 5MG PO PRN (13:24)
[2019-05-24 18:00] VITALS: BP 112/74
[2019-05-24] MEDS ORDERED: QUEtiapine FUMERATE XR 50 MG TABER PO SCH (18:00)
[2019-05-25 06:35] VITALS: BP 116/69
[2019-05-25] MEDS: POLYVINYL ALCOHOL OPHTH SOLN 15 ML(LIQUITEARS) OU SCH (08:18)
[2019-05-25] MEDS: prednisoLONE ACET 1% OPHTH SUSP 5ML OU SCH (08:18)
[2019-05-25] MEDS: OLANZapine ORAL DISINTEGRATING TAB 5MG PO PRN (08:19)
[2019-05-25] MEDS: OMEPRAZOLE 20 MG CAP PO SCH (08:19)
[2019-05-25] MEDS ORDERED: HYDR50TA70 PO (08:49)
[2019-05-25] MEDS ORDERED: VENL150C43 PO (08:49)
[2019-05-25] MEDS ORDERED: ABIL1TAB12 PO (08:49)
[2019-05-25] MEDS ORDERED: TRAZ10TA PO (08:49)
[2019-05-25] MEDS ORDERED: SERO400T PO (08:49)
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
[2019-05-25] MEDS ORDERED: ARIPiprazole 15 MG TAB (AbiLIFY) PO SCH (09:00)
== END 2019-05-25 09:47 | disposition home or self-care (01) | DRG 885 ==
LOC: M ED 17:24 → M ED INP 20:42 → M PSY 23:19
PROVIDERS: ADMIT Psychiatry & Neurology Psychiatry; ATTEND Psychiatry & Neurology Psychiatry
DX: F31.81 Bipolar II disorder (principal); F41.1 Generalized anxiety disorder; Z79.899 Other long term (current) drug therapy; K21.9 Gastro-esophageal reflux disease without esophagitis; Z62.810 Personal history of physical and sexual abuse in childhood